=== PATIENT | male | born 1990 | race Hispanic/Latino ===

== ENCOUNTER 2018-07-24 12:44 | Emergency (ER) | payer SELFPAY ==
[2018-07-24 13:36] LABS: APPEARANCE,URINE Clear (CLEAR); BILIRUBIN,URINE Negative (NEGATIVE); COLOR,URINE Yellow (YELLOW); GLUCOSE, URINE (UA) Negative (NEGATIVE); KETONES,URINE 15 mg/dL (NEGATIVE); LEUKOCYTE ESTERASE ,URINE Negative (NEGATIVE); NITRATE,URINE Negative (NEGATIVE); OCCULT BLOOD,URINE Negative (NEGATIVE); PH,URINE 6.5 (5.0-8.0); PROTEIN,URINE Negative (NEGATIVE)
[2018-07-24] MEDS ORDERED: CEFTRIAXONE SODIUM 500 MG VIAL ONE (13:44)
[2018-07-24] MEDS ORDERED: AZITHROMYCIN 250 MG TABLET PO ONE (13:44)
[2018-07-24] MEDS ORDERED: LIDOCAINE HCL 1% 20 ML VIAL ONE (13:44)
[2018-07-24 13:51] LABS: BACTERIA,URINE None Seen /HPF (None Seen); RBC,URINE 0-1 /HPF (0-1); SQUAMOUS EPITHELIAL CELL,UR 0-2 /HPF (0-2); WBC,URINE 0-1 /HPF (0-1)
== END 2018-07-24 14:29 | disposition home or self-care (01) ==
LOC: EDH 12:44
DX: N34.2 Other urethritis (principal); A64 Unspecified sexually transmitted disease; Z72.0 Tobacco use
CPT/HCPCS: 81001; 87486; 87797; 96372; 99283; J0696